=== PATIENT | female | born 1980 | race Two or more races ===

== ENCOUNTER 2016-12-13 20:52 | Emergency (ER) | payer SELFPAY ==
[~2016-12-13] VITALS: Ht 167.6 cm; Wt 72.6 kg
[2016-12-13 21:16] VITALS: BP 142/81
[2016-12-13] MEDS ORDERED: AZITHROMYCIN 250 MG TABLET. PO ONE (21:30)
[2016-12-13] MEDS ORDERED: metroNIDAZOLE 500 MG TABLET PO ONE (21:30)
[2016-12-13] MEDS ORDERED: cefTRIAXone IM 250 MG VIAL IM ONE (21:30)
[2016-12-13 21:34] LABS: BILIRUBIN,URINE NEGATIVE (NEG); GLUCOSE,URINE NEGATIVE (NEG); NITRITE,URINE NEGATIVE (NEG); PROTEIN,URINE NEGATIVE (NEG-TRACE); UROBILINOGEN,URINE 0.2 mg/dL (0.2 mg/dL)
[2016-12-13 21:46] LABS: BACTERIA,URINE MOD /HPF (0-FEW); SQUAMOUS EPITHELIAL CELL,UR FEW /LPF
[2016-12-13] MEDS ORDERED: METR500T PO (22:15)
--- NOTE | 2016-12-13 22:15 | PHYS DOC ---
Past Medical History Past Medical History: No Pertinent History Past Surgical History: Appendectomy Alcohol Use: None Drug Use: None Adult General Chief Complaint Chief Complaint: SEXUALLY TRANSMITTED DISEASE HPI HPI Patient is a 36 year old female with no significant medical history who presents today with STD concern. Patient has no symptoms by the was diagnosed with an STD 2 months ago, he was treated but patient was not treated. The currently has symptoms. They both in the ED to be treated. Review of Systems Review of Systems Constitutional: Denies fever or chills [] Eyes: Denies change in visual acuity, redness, or eye pain [] HENT: Denies nasal congestion or sore throat [] Respiratory: Denies cough or shortness of breath [] Cardiovascular: No additional information not addressed in HPI [] GI: STD concern : Denies dysuria or hematuria [] Musculoskeletal: Denies back pain or joint pain [] Integument: Denies rash or skin lesions [] Neurologic: Denies headache, focal weakness or sensory changes [] Endocrine: Denies polyuria or polydipsia [] Current Medications Current Medications Current Medications Medications (Trade) Dose Ordered Sig/Isis Start Time Stop Time Status Last Admin Dose Admin Azithromycin (Zithromax) 1,000 mg 1X ONCE 12/13/16 21:30 12/13/16 21:31 DC 12/13/16 21:23 1,000 MG Ceftriaxone Sodium (Rocephin Im) 250 mg 1X ONCE 12/13/16 21:30 12/13/16 21:31 DC 12/13/16 21:23 250 MG Metronidazole (Flagyl) 2,000 mg 1X ONCE 12/13/16 21:30 12/13/16 21:31 DC 12/13/16 21:24 2,000 MG Allergies Allergies Allergies Coded Allergies Type Severity Reaction Last Updated Verified No Known Drug Allergies 12/13/16 No Physical Exam Physical Exam Constitutional: Well developed, well nourished, no acute distress, non-toxic appearance. [] HENT: Normocephalic, atraumatic, bilateral external ears normal, oropharynx moist, no oral exudates, nose normal. [] Eyes: PERRLA, EOMI, conjunctiva normal, no discharge. [] Neck: Normal range of motion, no tenderness, supple, no stridor. [] Cardiovascular:Heart rate regular rhythm, no murmur [] Lungs & Thorax: Bilateral breath sounds clear to auscultation [] Abdomen: Bowel sounds normal, soft, no tenderness, no masses, no pulsatile masses. [] Pelvic exam External pelvic appears normal, cervix was not well visualized. Small amount of white discharge in the vaginal vault. No adnexal tenderness. No CMT. Skin: Warm, dry, no erythema, no rash. [] Back: No tenderness, no CVA tenderness. [] Extremities: No tenderness, no cyanosis, no clubbing, ROM intact, no edema. [] Neurologic: Alert and oriented X 3, normal motor function, normal sensory function, no focal deficits noted. [] Psychologic: Affect normal, judgement normal, mood normal. [] Current Patient Data Vital Signs Vital Signs Date Time Temp Pulse Resp B/P (MAP) Pulse Ox O2 Delivery O2 Flow Rate FiO2 12/13/16 21:16 98.6 110 18 142/81 (101) 99 Room Air 98.6 Lab Values Laboratory Tests Test 12/13/16 21:26 Urine Collection Type Unknown Urine Color Yellow Urine Clarity Clear Urine pH 5.0 Urine Specific [place] >=1.030 Urine Protein Negative mg/dL (NEG-TRACE) Urine Glucose (UA) Negative mg/dL (NEG) Urine Ketones (Stick) Negative mg/dL (NEG) Urine Blood Negative (NEG) Urine Nitrite Negative (NEG) Urine Bilirubin Negative (NEG) Urine Urobilinogen Dipstick 0.2 mg/dL (0.2 mg/dL) Urine Leukocyte Esterase Small (NEG) Urine RBC 3-5 /HPF (0-2) Urine WBC 11-20 /HPF (0-4) Urine Squamous Epithelial Cells Few /LPF Urine Bacteria Mod /HPF (0-FEW) Urine Mucus Marked /LPF Microbiology 12/13/16 Wet Prep - Final, Complete EKG EKG [] Radiology/Procedures Radiology/Procedures [] Course & Med Decision Making Course & Med Decision Making Pertinent Labs and Imaging studies reviewed. (See chart for details) Patient is in the ED with concern for STDs. She has history of tubal ligation. was treated for STDs 2 months ago but patient was not treated. They are both in the ED for testing and treatment. Wet prep positive for BV. Patient was given Flagyl Rocephin and azithromycin. Urine appears contaminated. We discharged her with Flagyl to complete BV treatment. Educated on safe sex practices especially the need to use protection at all times. Dragon Disclaimer Dragon Disclaimer This electronic medical record was generated, in whole or in part, using a voice recognition dictation system. Departure Departure Impression: Primary Impression: Concern about STD in female without diagnosis Additional Impression: Bacterial vaginosis Disposition: HOME, SELF-CARE Condition: STABLE Referrals: NO PCP (PCP) Follow-up with your doctor in 1-2 weeks or the health department Patient Instructions: Bacterial Vaginosis, Sexually Transmitted Disease Additional Instructions: You were seen and treated for STD concern. Do not have sex for 7 days. Use protection at all times. You also tested positive for bacterial vaginosis. This is not an STD. Complete your antibiotics. Scripts Metronidazole (FLAGYL) 500 Mg Tablet 1 TAB PO BID, #10 TAB Prov: JADYN LUIS APRN 12/13/16 Problem Qualifiers JADYN LUIS APRN Dec 13, 2016 22:15
== END 2016-12-13 22:17 | disposition home or self-care (01) ==
LOC: ER 20:52
DX: Z20.2 Contact with and (suspected) exposure to infections with a predominantly sexual mode of transmission (principal)
CPT/HCPCS: 81001; 87491; 87591; 96372; 99284; J0696; Q0111; Q0144